=== PATIENT | female | born 1955 | race Caucasian/White ===

== ENCOUNTER 2017-09-26 07:14 | Day surgery (SDC) | payer OTHER ==
[2017-09-22 10:38] VITALS: BMI 21.2
[2017-09-26] MEDS ORDERED: Clindamycin/D5W 600 mg/50 ml Premix Bag ONE (07:42)
[2017-09-26] MEDS ORDERED: Midazolam HCl 2 mg/2 ml Vial ONE (08:20)
[2017-09-26] MEDS ORDERED: Fentanyl 100 MCG/2 ML VIAL ONE ×2 (08:20→10:52)
[2017-09-26] MEDS ORDERED: Betamet Acet/Betamet Na Ph 30 MG/5 ML VIAL ONE (10:53)
[2017-09-26] MEDS ORDERED: Bupivacaine PF 0.5% 30 ML VIAL ONE ×2 (10:53→12:28)
[2017-09-26] MEDS ORDERED: Bacitracin Zinc Ointment 30 gm TUBE ONE (10:53)
[2017-09-26] MEDS ORDERED: Bupivacaine HCl 0.5%/Epinephrine 1:200,000/PF 30 ml Vial ONE (12:28)
[2017-09-26] MEDS ORDERED: ePHEDrine/0.9% NaCl/PF SYRINGE 50 mg/10 ml ONE (12:35)
[2017-09-26] MEDS ORDERED: Ondansetron HCl/PF 4 MG/2 ML Vial ONE (12:35)
[2017-09-26] MEDS ORDERED: Ketorolac Tromethamine 30 MG/ML VIAL ONE (13:34)
--- NOTE | 2017-09-26 13:51 | OP ---
DATE OF PROCEDURE: 09/26/2017 PREOPERATIVE DIAGNOSIS: Possible median nerve compression onto an area of flexor carpi radialis teno synovitis with possible gain in connection. FINDINGS: 1. Deep flexor tendon synovitis into the carpal canal. Flexor digitorum profundus to all digits. 2. Flexor carpi radialis tenosynovitis. 3. Ganglion connected to the tenosynovitis entering into the radioscaphoid joint under the flexor ca rpal radialis and compressing the palmar branch of the median nerve. PROCEDURE PERFORMED: 1. Carpal tunnel release/neuroplasty median nerve transverse carpal ligament and distal palmar fasci a of the wrist, left side. 2. Flexor carpi radialis radical tenosynovectomy, left wrist. 3. Flexor digitorum profundus radical tenosynovectomy of all the digital branches. 4. Ganglion excision, palmar with arthrotomy radioscaphoid joint. ESTIMATED BLOOD LOSS: 10 mL. TOURNIQUET TIME: 31 minutes. ANESTHESIA: Anesthesia was a block with local sedation including 10 mL incisional block 0.5% Marcain e at the end of procedure. INDICATION: The patient with pain, swelling now reports numbness and tingling in the radial digits a nd a mass obviously around the flexor carpi radialis and could be near the nerves, including the palm ar branch. SURGEON: Benjamín Oviedo M.D. ANESTHESIA: [place] Anesthesia. DESCRIPTION OF THE PROCEDURE: After successful anesthesia with a block, we augmented this with mild IV sedation and the patient had the limb prepped and draped. Time out was done appropriately. We then performed an exsanguination of limb, inflated tourniquet to 250 mmHg pressure. The mass was long, almost 2 cm along the flexor carpi radialis extended and then going radial to it and ulnar at t he joint line. We made a zigzag incision and because of the numbness and tingling along with Tinel o f the median nerve we extended it into the interspace between the thenar, hypothenar regions approxim ately 2 cm across the wrist to follow the mass. An incision was made, carried through skin and subcutaneous tissue in the same line as described amaury corcoran. Immediately, we found the median nerve proximal to the palmar fascia exit and the palmar cutaneou s branch and traced it. The palmar cutaneous branch went right on the flexor carpi radialis tendon, was surrounded by the tenosynovial swelling here and when we traced it, we performed a median nerve n europlasty and palmar branch neuroplasty. We also realized that the flexor radialis tenosynovitis wa s connected via to a ganglion at the radiocarpal joint. We then protected the palmar branch, identif ied the median nerve proper, freed it from palmar fascial connections and saw it with tenosynovial sw elling in the primary flexors as well at this level. Attention was then turned once we the palmar cutaneous branch from the surgical flexor radi leonie mass to separate the flexor carpi radialis mass from the radial artery which was done. We liga jen 2 small branches with a clip whipper beater intraoperative. Then, we did a radical flexor tenosynovecto my flexor radialis and then followed the ganglion stalk as with the stalk down into the radiocarpal j oint, made a 3 mm arthrotomy, removed the synovial connection. This specimen was sent to the lab. We then traced the opening the transverse carpal ligament completely, followed the flexor tendons int o the carpal canal. The median nerve did not show any obvious formation of digital stippling and the motor branch was protected. We then saw that the deep flexors had marked tenosynovial edema and swe lling and so we did a radical flexor digitorum profundus tenosynovectomy to the index, long, ring and small finger branches. Tourniquet was release and this specimen from the last tenosynovectomy was sent to pathology as well. Hemostasis obtained. 5 mL of Celestone was placed along the nerve and the tendons. We then obtain ed hemostasis and closed the wound with interrupted 4-0 nylon in a simple pattern and the patient lef t the operating room in a bulky dressing and a palmar splint without complication.
== END 2017-09-26 14:23 | disposition home or self-care (01) ==
LOC: SDC 07:14
PROVIDERS: ATTEND Orthopaedic Surgery Hand Surgery
DX: M67.432 Ganglion, left wrist (principal); M65.9 Synovitis and tenosynovitis, unspecified; F17.200 Nicotine dependence, unspecified, uncomplicated; I47.1 Supraventricular tachycardia; E78.5 Hyperlipidemia, unspecified; Z79.899 Other long term (current) drug therapy; Z88.0 Allergy status to penicillin; Z91.041 Radiographic dye allergy status; Z88.8 Allergy status to other drugs, medicaments and biological substances; Z90.49 Acquired absence of other specified parts of digestive tract; Z90.710 Acquired absence of both cervix and uterus; Z90.89 Acquired absence of other organs; Z90.722 Acquired absence of ovaries, bilateral; Z90.79 Acquired absence of other genital organ(s); Z98.890 Other specified postprocedural states; Z85.828 Personal history of other malignant neoplasm of skin; Z87.01 Personal history of pneumonia (recurrent)
CPT/HCPCS: 88304; 88305; 96372; J0702; J1885; J2250; J3010; J3490; S0020

== ENCOUNTER 2018-02-23 08:47 | Outpatient (CLI) | payer OTHER ==
--- NOTE | 2018-02-23 11:41 | CT ---
CT OF THE ABDOMEN AND PELVIS WITH IV CONTRAST: Date: 02/23/18 INDICATION: Left lower quadrant abdominal pain for 2 months with extreme pain experienced in the last 2 weeks. Jorge maddox has a history of appendectomy and hysterectomy. COMPARISON: None. FINDINGS: The lung bases are clear. There are oval hypodensities within the liver, the largest seen within segment 6 of the right hepatic lobe measuring 2.8 cm, most consistent with a simple cyst. Additional smaller simple cysts are seen within the lateral left hepatic lobe on image 12 of series 2. There are additional subcentimeter hypo densities within the right hepatic lobe that are too small to characterize, but statistically are als o likely reflective of cysts. The pancreas and adrenal glands are normal appearing. The spleen is normal appearing. The kidneys are normal appearing. No free fluid or enlarged lymph nodes are evident. The uterus is surgically absent. No free fluid is evident. The bladder, rectum, and perirectal soft t issues are unremarkable. The colon appears within normal limits. No bowel wall thickening is evident. Small bowel is of normal caliber. There is dextroscoliosis of the lumbar spine. There is scattered degenerative and osteoarthritic bains ge. IMPRESSION: IMPRESSION: 1. No CT explanation for the patient's abdominal pain. 2. Hypodensities within the liver, most consistent with cysts. 3. No free fluid identified. 4. Postsurgical changes of appendectomy and hysterectomy. POS: RASHAWN
== END 2018-02-23 08:48 | disposition home or self-care (01) ==
LOC: CT 08:47
PROVIDERS: ATTEND Physician Assistant Medical
DX: R10.32 Left lower quadrant pain (principal); R93.2 Abnormal findings on diagnostic imaging of liver and biliary tract; Z98.890 Other specified postprocedural states; Z90.49 Acquired absence of other specified parts of digestive tract; Z90.710 Acquired absence of both cervix and uterus
CPT/HCPCS: 74177

== ENCOUNTER 2020-09-30 10:24 | Outpatient (CLI) | payer MEDICARE ==
--- NOTE | 2020-09-30 11:18 | MMO ---
Bilateral MAMMO Bilat Diag [facility]. CLINICAL HISTORY: Patient is 65 years old and is seen for diagnostic exam. The patient has no family history of breast cancer. The patient has no personal history of cancer. VIEWS: The views performed were: bilateral craniocaudal with tomosynthesis; bilateral mediolateral oblique with tomosynthesis; bilateral mediolateral with tomosynthesis; left craniocaudal spot compression magnification; and left mediolateral spot compression magnification. FILMS COMPARED: The present examination has been compared to prior imaging studies performed at [facility] on 09/28/2015, at [facility] on 05/01/2019 and 05/07/2019, and at [facility] on 12/13/2016. This study has been interpreted with the assistance of computer-aided detection. MAMMOGRAM FINDINGS: There are scattered fibroglandular densities. Benign calcifications are noted bilaterally. There are no suspicious masses, suspicious calcifications, or new areas of architectural distortion. IMPRESSION: THERE IS NO MAMMOGRAPHIC EVIDENCE OF MALIGNANCY. A ROUTINE FOLLOW-UP MAMMOGRAM IN 1 YEAR IS RECOMMENDED. THE RESULTS OF THIS EXAM WERE SENT TO THE PATIENT. ACR BI-RADS Category 2 - Benign finding MAMMOGRAPHY NOTE: 1. A negative mammogram report should not delay a biopsy if a dominant of clinically suspicious mass is present. 2. Approximately 10% to 15% of breast cancers are not detected by mammography. 3. Adenosis and dense breasts may obscure an underlying neoplasm. Reported by: DINO CORNELL MD Electonically Signed: [id number]
--- NOTE | 2020-09-30 13:04 | CT ---
LOW DOSE CT SCAN OF THE CHEST WITHOUT IV CONTRAST FOR LUNG CANCER SCREENING: Date; 09/30/2020 HISTORY: 65-year-old female with a pack/day smoking for 40 years. Patient is a current smoker. Nicotine depend ence. FINDINGS: There is scarring in the lung apices. No focal areas of consolidation or lung nodules are otherwise i dentified. No pleural or pericardial effusions are noted. There are vascular calcifications without evidence of aneurysmal dilatation of the thoracic aorta. There are degenerative changes in the spine. Upper abdom inal tomograms demonstrate stable liver cysts compared to the CT abdomen and pelvis of 02/23/2018. IMPRESSION: Lung-RADS 1: Negative. RECOMMENDATION: A follow-up low dose CT scan of the chest is recommended in 12 months. POS: OFF
== END 2020-09-30 10:25 | disposition home or self-care (01) ==
LOC: BICCT 10:24
PROVIDERS: ATTEND Family Medicine
DX: Z12.2 Encounter for screening for malignant neoplasm of respiratory organs (principal); R92.8 Other abnormal and inconclusive findings on diagnostic imaging of breast; F17.210 Nicotine dependence, cigarettes, uncomplicated
CPT/HCPCS: 77066; G0279; G0297; 71271

== ENCOUNTER 2021-10-15 14:31 | Outpatient (CLI) | payer MEDICARE | END 2021-10-15 14:32 | disposition home or self-care (01) | LOC: BICCT 14:31 | PROVIDERS: ATTEND Family Medicine | DX: Z12.2 Encounter for screening for malignant neoplasm of respiratory organs (principal); F17.210 Nicotine dependence, cigarettes, uncomplicated | CPT/HCPCS: 71271 ==

== ENCOUNTER 2021-10-15 14:55 | Outpatient (CLI) | payer MEDICARE | END 2021-10-15 14:56 | disposition home or self-care (01) | LOC: BICMAMMO 14:55 | PROVIDERS: ATTEND Family Medicine | DX: Z12.31 Encounter for screening mammogram for malignant neoplasm of breast (principal) | CPT/HCPCS: 77063; 77067 ==

== ENCOUNTER 2022-11-29 13:32 | Outpatient (CLI) | payer MEDICARE | END 2022-11-29 13:33 | disposition home or self-care (01) | LOC: BICCT 13:32 | PROVIDERS: ATTEND Family Medicine | DX: Z12.2 Encounter for screening for malignant neoplasm of respiratory organs (principal); Z12.31 Encounter for screening mammogram for malignant neoplasm of breast; R92.1 Mammographic calcification found on diagnostic imaging of breast; M81.0 Age-related osteoporosis without current pathological fracture; F17.210 Nicotine dependence, cigarettes, uncomplicated; Z78.0 Asymptomatic menopausal state; Z91.89 Other specified personal risk factors, not elsewhere classified | CPT/HCPCS: 71271; 77063; 77067; 77080 ==

== ENCOUNTER 2023-08-05 15:54 | Emergency (ER) | payer MEDICARE ==
[2023-08-05 16:48] LABS: #Eosinphils 0.2 thou/uL (0.0-0.7); #Monocytes 0.5 thou/uL (0.11-0.59); #Neutrophils 4.7 thou/uL (1.40-6.50); %Basophils 0.5 % (0.0-1.0); %Eosinophils 2.9 % (0.0-10.0); %Lymphocytes 28.7 % (21.0-51.0); %Monocytes 6.7 % (0.0-10.0); %Neutrophils 60.8 % (42.0-75.0); Hematocrit 43.7 % (36.0-47.0); Hemoglobin 14.9 g/dL (12.0-16.0); Mean Corpuscular HGB CONC 34.1 g/dL (32.0-36.0); Mean Corpuscular Volume 90.9 fl (78.0-98.0); Mean Platelet Volume 9.3 fL (7.4-10.4); Platelet Count 258 10x3/uL (130-400); RBC Distribution Width 12.8 % (11.5-14.5); Red Blood Cell (RBC) Count 4.81 mill/uL (4.20-5.40); White Blood Cell (WBC) Count 7.6 10x3/uL (4.8-10.8)
[2023-08-05 17:18] LABS: ALT (SGPT) 11 U/L (8-55); AST (SGOT) 15 U/L (5-34); Albumin 4.4 g/dL (3.4-4.8); Alkaline Phosphatase 114 U/L (40-110); Anion Gap 17 mmol/L (10-20); BUN (Urea Nitrogen) 11 mg/dL (9.8-20.1); Bilirubin, Total 0.5 mg/dL (0.2-1.2); Calc. Creatinine Clearance 0 mL/min (70-130); Calcium 9.8 mg/dL (7.8-10.44); Carbon Dioxide 23 mmol/L (23-31); Chloride 108 mmol/L (98-107); Estimated GFR 85; Glucose 128 mg/dL (80-115); Potassium 3.9 mmol/L (3.5-5.1); Protein, Total 7.4 g/dL (5.8-8.1); Sodium 144 mmol/L (136-145)
[2023-08-05 17:22] LABS: Troponin I Less than 0.010 ng/mL (< 0.028)
== END 2023-08-05 18:16 | disposition home or self-care (01) ==
LOC: ERS 15:54
DX: R00.2 Palpitations (principal); F17.210 Nicotine dependence, cigarettes, uncomplicated
CPT/HCPCS: 71045; 80053; 84484; 85025; 93005; 94760

== ENCOUNTER 2024-10-25 12:32 | Outpatient (CLI) | payer MEDICARE ==
[~2024-10-25 12:32] MED LIST: Iopamidol 370 76% 100 ML VIAL ONE
== END 2024-10-25 12:33 | disposition home or self-care (01) ==
LOC: BICCT 12:32
PROVIDERS: ATTEND Radiology Radiation Oncology
DX: R91.1 Solitary pulmonary nodule (principal)
CPT/HCPCS: 36415; 71260; 82565

== ENCOUNTER 2025-04-01 14:04 | Outpatient (CLI) | payer MEDICARE ==
[2025-04-01 15:16] LABS: Estimated GFR - POC 93.0
== END 2025-04-01 14:05 | disposition home or self-care (01) ==
LOC: CT 14:04
PROVIDERS: ATTEND Otolaryngology
DX: K11.9 Disease of salivary gland, unspecified (principal); J34.89 Other specified disorders of nose and nasal sinuses; H74.8X1 Other specified disorders of right middle ear and mastoid; Z90.09 Acquired absence of other part of head and neck
CPT/HCPCS: 36000; 36415; 70491; 82565; Q9967